=== PATIENT | female | born 1990 | race Hispanic/Latino ===

== ENCOUNTER 2022-05-23 12:06 | Emergency (ER) | payer OTHER ==
[~2022-05-23] VITALS: Ht 157.5 cm; Wt 131.5 kg
[~2022-05-23 12:06] MED LIST: CEFUROXIME500 MG PO; DICYCLOMINE HCL20 MG PO; LIDOCAINE1 EAC1 EXT; ONDANSETRON ODT4 MG PO
[2022-05-23] MEDS ORDERED: CYCLOBENZAPRINE10 MG PO (13:13)
[2022-05-23] MEDS ORDERED: PREDNISONE50 MG PO (13:13)
[2022-05-23] MEDS ORDERED: IBUPROFEN600 MG PO (13:14)
== END 2022-05-23 13:25 | disposition home or self-care (01) ==
LOC: FSED 12:24
DX: M54.12 Radiculopathy, cervical region (principal); M54.50 Low back pain, unspecified; E66.01 Morbid (severe) obesity due to excess calories; F17.210 Nicotine dependence, cigarettes, uncomplicated
CPT/HCPCS: 99283

== ENCOUNTER 2024-01-11 10:07 | Emergency (ER) | payer SELFPAY ==
[~2024-01-11] VITALS: Ht 157.5 cm; Wt 111.2 kg
[~2024-01-11 10:07] MED LIST changes: +CLEOCIN HCL300 MG PO; +CYCLOBENZAPRINE10 MG PO; +IBUPROFEN600 MG PO; +MUPIROCIN22 GM TOP; +PREDNISONE50 MG PO
[2024-01-11] MEDS: ACETAMINOPHEN 325 MG TAB PO ONE (10:56)
[2024-01-11] MEDS ORDERED: KEFLEX125 MG/5 M PO (12:04)
[2024-01-11 12:06] VITALS: PULSE 75; RESP 20; TEMP 98.2
[2024-01-11 12:20] VITALS: BP 138/98; PULSE 75; RESP 20; TEMP 98.2; O2SAT 99
== END 2024-01-11 12:23 | disposition home or self-care (01) ==
LOC: FSED 10:26
DX: R10.30 Lower abdominal pain, unspecified (principal); N39.0 Urinary tract infection, site not specified; I12.9 Hypertensive chronic kidney disease with stage 1 through stage 4 chronic kidney disease, or unspecified chronic kidney disease; N18.9 Chronic kidney disease, unspecified; R94.4 Abnormal results of kidney function studies; R11.2 Nausea with vomiting, unspecified
CPT/HCPCS: 74176; 80048; 80053; 80076; 81003; 81025; 85025; 87086; 87186; 99283

== ENCOUNTER 2024-08-17 10:07 | Emergency (ER) | payer SELFPAY ==
[~2024-08-17] VITALS: Ht 154.9 cm; Wt 116.3 kg
[~2024-08-17 10:07] MED LIST changes: +KEFLEX125 MG/5 M PO
[2024-08-17 10:25] VITALS: PULSE 76; RESP 16; TEMP 97.5; O2SAT 96
[2024-08-17] MEDS ORDERED: PYRIDIUM100 MG PO (10:40)
[2024-08-17] MEDS ORDERED: AUGMENTIN 500-1 EACH PO (10:40)
== END 2024-08-17 10:44 | disposition home or self-care (01) ==
LOC: FSED 10:18
DX: R30.0 Dysuria (principal); N39.0 Urinary tract infection, site not specified; I12.9 Hypertensive chronic kidney disease with stage 1 through stage 4 chronic kidney disease, or unspecified chronic kidney disease; N18.30 Chronic kidney disease, stage 3 unspecified
CPT/HCPCS: 81003; 99284

== ENCOUNTER 2024-10-26 13:50 | Emergency (ER) | payer SELFPAY ==
[~2024-10-26] VITALS: Ht 157.5 cm; Wt 116.8 kg
[~2024-10-26 13:50] MED LIST changes: +AUGMENTIN 500-1 EACH PO; +PYRIDIUM100 MG PO
[2024-10-26 13:55] VITALS: PULSE 78; RESP 20; TEMP 97.6; O2SAT 98
[2024-10-26] MEDS ORDERED: CEFUROXIME500 MG PO (14:36)
[2024-10-26] MEDS ORDERED: HYDROCHLOROTHIA25 MG PO (14:36)
== END 2024-10-26 14:53 | disposition home or self-care (01) ==
LOC: FSED 14:22
DX: R10.9 Unspecified abdominal pain (principal); N39.0 Urinary tract infection, site not specified; I12.9 Hypertensive chronic kidney disease with stage 1 through stage 4 chronic kidney disease, or unspecified chronic kidney disease; N18.9 Chronic kidney disease, unspecified
CPT/HCPCS: 80053; 81003; 99284